=== PATIENT | female | born 1965 | race Caucasian/White ===

== ENCOUNTER 2022-01-01 20:21 | Emergency (ER) | payer OTHER ==
--- NOTE | 2022-01-01 20:36 | ED Physician Documentation ---
PD HPI ABD PAIN - Stated complaint Stated Complaint: LRQ PX/VOM - Chief complaint Chief Complaint: Abd Pain - History obtained from History obtained from: Patient - History of Present Illness Timing - onset: Today (about 1 pm) Timing - duration: Hours (5-6) Timing - details: Gradual onset, Still present Quality: Cramping, Aching, Pain Location: RLQ Radiation: Lower back. No: Improved by: Laying still. No: Eating Worsened by: Moving, Palpation. No: Eating, Breathing Associated symptoms: Nausea. No: Fever, Vomiting, Diarrhea, Constipation Similar symptoms before: Has not had sx before Recently seen: Not recently seen Review of Systems Constitutional: denies: Fever, Chills Nose: denies: Rhinorrhea / runny nose, Congestion Throat: denies: Sore throat Respiratory: denies: Cough GI: reports: Abdominal Pain, Nausea. denies: Vomiting, Constipation, Diarrhea : reports: LMP (has not had menses for few years). 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 - Past Surgical History Past Surgical History: No - Present Medications Home Medications: Ambulatory Orders Medication Instructions Recorded Confirmed Ondansetron Odt [Zofran] 4 mg TL Q6H PRN #10 tablet 01/01/22 Oxycodone HCl/Acetaminophen 1 each PO Q6H PRN #10 tablet 01/01/22 [Percocet 5-325 mg Tablet] - Allergies Allergies/Adverse Reactions: Allergies Allergy/AdvReac Type Severity Reaction Status Date / Time No Known Drug Allergies Allergy Verified 01/01/22 20:26 PD ED PE NORMAL - Vitals Vital signs reviewed: Yes - General General: Alert and oriented X 3, Well developed/nourished, Other (appears in moderate pain.) - HEENT HEENT: Pharynx benign - Neck Neck: Supple, no meningeal sign, No adenopathy - Cardiac Cardiac: RRR, No murmur - Respiratory Respiratory: Clear bilaterally - Abdomen Abdomen: Normal bowel sounds, Soft, Non distended, No organomegaly, Other (tender periumbilical to RLQ area locally. No percussion nor refered tenderness. Mild rebound locally. ) Results - Vitals Vitals: Oxygen O2 Source Room air - Labs Labs: Laboratory Tests 01/01/22 01/01/22 01/01/22 21:05 21:05 21:42 WBC 12.5 H RBC 4.44 Hgb 13.3 Hct 39.8 MCV 89.6 MCH 30.0 MCHC 33.4 RDW 12.7 Plt Count 265 MPV 9.2 Neut # (Auto) 10.4 H Lymph # (Auto) 1.3 L Clay # (Auto) 0.7 Eos # (Auto) 0.0 Baso # (Auto) 0.0 Absolute Nucleated RBC 0.00 Nucleated RBC % 0.0 Sodium 138 Potassium 3.3 L Chloride 101 Carbon Dioxide 25 Anion Gap 12.0 BUN 13 Creatinine 0.8 Estimated GFR (MDRD) 74 L Glucose 142 H Calcium 9.3 Total Bilirubin 0.6 AST 19 ALT 18 Alkaline Phosphatase 55 Total Protein 7.2 Albumin 4.3 Globulin 2.9 Albumin/Globulin Ratio 1.5 Lipase 40 Urine Color YELLOW Urine Clarity HAZY Urine pH 8.5 H Ur Specific [place] 1.015 Urine Protein NEGATIVE Urine Glucose (UA) NEGATIVE Urine Ketones 40 H Urine Occult Blood NEGATIVE Urine Nitrite NEGATIVE Urine Bilirubin NEGATIVE Urine Urobilinogen 0.2 (NORMAL) Ur Leukocyte Esterase NEGATIVE Urine RBC None Seen Urine WBC 0-3 Ur Squamous Epith Cells NONE SEEN Amorphous Sediment Marked Urine Bacteria None Seen Ur Microscopic Review INDICATED Urine Culture Comments NOT INDICATED - Rads (name of study) abd/pelvic CT Radiology: Prelim report reviewed (normal appendix. No acute findings. Incidental 3 cm duodenal diverticulum without inflammatory changes. ), See rad report PD MEDICAL DECISION MAKING - ED course Complexity details: considered differential (concern for appy. consider colitis, ovarian, UTI or kidney stone among others. Less likely vascular. ), d/w patient Departure - Departure Disposition: 01 Home, Self Care Clinical Impression: Acute abdominal pain in right upper quadrant, Biliary colic, Duodenal diverticulum Condition: Stable Record reviewed to determine appropriate education?: Yes Instructions: ED Abdominal Pain Gallstone Poss Follow-Up: AMAYA ZHOU MD [Primary Care Provider] - Prescriptions: Oxycodone HCl/Acetaminophen [Percocet 5-325 mg Tablet] 1 each PO Q6H PRN #10 tablet PRN Reason: pain Ondansetron Odt [Zofran] 4 mg TL Q6H PRN #10 tablet PRN Reason: Nausea / Vomiting Comments: Your symptoms and location of pain are very consistent with a gallbladder spasm. Your blood test did not show any inflammation of the pancreas or liver. Your CT scan showed an incidental diverticulum of the duodenum which is a small pouch out but there is no signs of inflammation to it. This does not seem to be related to your pain and just an incidental finding. The gallbladder appeared normal on CT scan without any obvious inflammation or swelling. They did not see obvious gallstones. This at least tells us there is no signs of acute inflammation or infection of it. It does not preclude the idea of a gallbladder spasm. This may be an isolated incident and not happen again. If you do get recurrent episode, you can use ondansetron for nausea and oxycodone/acetaminophen for the severe pain or even moderate pain. You could use Tylenol alone for just mild pain. If you have repeated episodes, you want to follow-up with your primary care for an outpatient ultrasound of the gallbladder to better visualize possible stones or other abnormality. Return to the ER if you have a severe episode unrelieved by the oral medication. I transmitted further prescriptions of medicines to [facility] pharmacy in [place] to have some on hand in case. We did send you home with a couple of tablets of pain and nausea medicines. Low-fat diet for the next several days to reduce stimulation of the gallbladder. I am prescribing a short course of narcotic pain medication for you. These are potentially dangerous and addictive medications that should be used carefully. These medications may constipate you. Take an [id number] stool softener such as docusate twice daily with plenty of water while taking these medications. If you go 24 hours without a bowel movement, take [id number] MiraLAX, per package instructions. Do not drink or drive while taking these medications. If you received narcotic or sedating medications while in the emergency department do not drive for 24 hours. Store this medication in a safe, secure place and out of reach of children. It is a violation of federal law to give or sell this medication to another person or to use in a manner other than prescribed. The ED will not refill narcotic prescriptions, including prescriptions lost or stolen. You can dispose of unwanted medications at the [facility]'s office or at several pharmacies such as [facility]. Discharge Date/Time: 01/01/22 23:19
[2022-01-01] MEDS ORDERED: HYDROmorphone 1 MG/ML CARPUJECT IVP STA (20:59)
[2022-01-01] MEDS ORDERED: KETOROLAC 15 MG/ML VIAL IVP STA (20:59)
[2022-01-01] MEDS ORDERED: SODIUM CHLORIDE 0.9% 1,000 ML IV STA (20:59)
[2022-01-01] MEDS ORDERED: ONDANSETRON 4 MG/2 ML VIAL IVP STA (20:59)
[2022-01-01 21:14] LABS: BASOPHILS % (AUTO) 0.3 %; EOSINOPHILS % (AUTO) 0.3 %; HCT - HEMATOCRIT 39.8 % (37.0-47.0); HGB - HEMOGLOBIN 13.3 g/dL (12.0-16.0); LYMPHOCYTES # (AUTO) 1.3 10^3/uL (1.5-3.5); LYMPHOCYTES % (AUTO) 10.1 %; MEAN CORPUSCULAR HGB CONC 33.4 g/dL (32.0-36.0); MEAN CORPUSCULAR VOLUME 89.6 fL (81.0-99.0); MEAN PLATELET VOLUME 9.2 fL (7.9-10.8); MONOCYTES # (AUTO) 0.7 10^3/uL (0.0-1.0); MONOCYTES % (AUTO) 5.4 %; NEUTROPHILS # (AUTO) 10.4 10^3/uL (1.5-6.6); NEUTROPHILS % (AUTO) 83.6 %; PLT - PLATELET COUNT 265 10^3/uL (130-450); RED BLOOD COUNT 4.44 10^6/uL (4.20-5.40); RED CELL DISTRIBUTION WIDTH 12.7 % (12.0-15.0); WHITE BLOOD COUNT 12.5 x10^3/uL (4.8-10.8)
[2022-01-01 21:24] LABS: ALBUMIN 4.3 g/dL (3.2-5.5); ALBUMIN/GLOBULIN RATIO 1.5 (1.0-2.2); BILIRUBIN,TOTAL 0.6 mg/dL (0.2-1.0); CALCIUM 9.3 mg/dL (8.5-10.3); CREATININE 0.8 mg/dL (0.4-1.0); POTASSIUM 3.3 mmol/L (3.5-5.0); TOTAL PROTEIN 7.2 g/dL (6.7-8.2)
[2022-01-01 21:58] LABS: BILIRUBIN,URINE NEGATIVE (NEGATIVE); GLUCOSE, URINE (UA) NEGATIVE (NEGATIVE); KETONES,URINE (UA) 40 mg/dL (NEGATIVE); LEUKOCYTE ESTERASE, URINE NEGATIVE (NEGATIVE); NITRITE,URINE NEGATIVE (NEGATIVE); OCCULT BLOOD,URINE NEGATIVE (NEGATIVE); PH,URINE 8.5 PH (5.0-7.5); PROTEIN,URINE NEGATIVE (NEGATIVE); UROBILINOGEN,URINE 0.2 (NORMAL) E.U./dL (NORMAL)
[2022-01-01 21:59] LABS: CLARITY,URINE HAZY (CLEAR)
--- NOTE | 2022-01-01 21:59 | CT Report ---
PROCEDURE: Abdomen/Pelvis WO INDICATIONS: right upper abd pain today TECHNIQUE: Noncontrast 5 mm thick sections acquired from the diaphragms to the symphysis. 5 mm coronal and sagi ttal reformats were then performed. For radiation dose reduction, the following was used: automated exposure control, adjustment of mA and/or kV according to patient size. COMPARISON: None. FINDINGS: Image quality: Somewhat limited by absence of both oral and intravenous contrast.. ABDOMEN: Lung bases: Lung bases are clear. Heart size is normal. Solid organs: Liver and spleen are normal in size. Gallbladder appears normal where well seen Panc reas is normal in contours. No adrenal nodules. Kidneys are normal in size, without hydronephrosis or nephrolithiasis. Peritoneum and bowel: Unenhanced bowel loops demonstrate normal wall thickness and caliber. No free fluid or air. There is a 3.3 cm proximal transverse duodenal diverticulum, without adjacent inflamm ation. Nodes and vessels: No retroperitoneal or mesenteric adenopathy by size criteria. Aorta and inferior vena cava are normal in caliber. Miscellaneous: No ventral hernias. PELVIS: Genitourinary: Bladder wall thickness is normal. Miscellaneous: No inguinal hernias or adenopathy. Apparent normal appendix seen on CT series 3 imag e 67. Bones: No suspicious bony lesions. No vertebral body compression fractures. IMPRESSION: A definite source of new pain is not identified. The study is free of evidence of acute inflammation and no peritoneal free fluid is seen. Incidental note is made of a 3.3 cm proximal transverse duodena l diverticulum containing a small amount of debris but no adjacent peripheral inflammation. Such find ings are generally incidental and not associated with symptomatology unless visible inflammation is p resent. At the right lower quadrant what likely is a normal appendix is found and there is no secondary CT ev idence of acute appendicitis. Reviewed by: Karl Monzon MD on 01/01/2022 9:58 PM PDT Approved by: Karl Monzon MD on 01/01/2022 9:58 PM PDT Station ID: [id number]
[2022-01-01 22:10] LABS: AMORPHOUS SEDIMENT,UR Marked /LPF; BACTERIA,URINE None Seen /HPF (None Seen); RBC,URINE None Seen /HPF (0-5); SQUAMOUS EPITHELIAL CELL,UR NONE SEEN (<= Few); WBC,URINE 0-3 /HPF (0-5)
[2022-01-01 22:32] VITALS: BP 135/85
[2022-01-01] MEDS ORDERED: ONDANSETRON ODT 4 MG Prepack 2 TL PRN (22:54)
[2022-01-01] MEDS ORDERED: oxyCODONE/ACET 5/325 Prepack 4 PO STA (22:54)
== END 2022-01-01 23:19 | disposition home or self-care (01) ==
LOC: ED 20:21
DX: K80.50 Calculus of bile duct without cholangitis or cholecystitis without obstruction (principal); K57.10 Diverticulosis of small intestine without perforation or abscess without bleeding
CPT/HCPCS: 36415; 74176; 80053; 81001; 83690; 85025; 96374; 99284; J1170; 81003; 87086